=== PATIENT | male | born 1990 | race Caucasian/White ===

== ENCOUNTER → 2021-08-08 09:36 | Outpatient (CLI) | payer OTHER, SELFPAY ==
[2021-08-08 11:31] LABS: COVID19 -Nasal RAPID Negative (Negative)
== END ==
PROVIDERS: PCP Student in an Organized Health Care Education/Training Program; Visit Provider Family Medicine Sleep Medicine
DX: Z20.822 Contact with and (suspected) exposure to COVID-19 (principal)
CPT/HCPCS: 87635; C9803

== ENCOUNTER 2021-08-11 09:00 | Day surgery (SDC) | payer OTHER, SELFPAY ==
[2021-08-11 09:13] VITALS: BP 123/76; PULSE 81; RESP 16; TEMP 36.5; O2SAT 99; BMI 29.0
--- NOTE | 2021-08-11 09:51 | PM.HP.1 ---
History of Present Illness History of Present Illness Date Patient Seen: 08/11/21 Time Patient Seen: 09:51 Chief complaint: DX COLONOSCOPY W/POSS BX Narrative: I reviewed the note on June [address] Garcia no changes. Patient History Medical History Depression Eczema Family & Social History Social History: household members spouse Tobacco & Substance use: Smoking Status Never smoker alcohol intake frequency a few times a week Substance Use Type does not use Meds Home Medications and Allergies Allergies Allergy/AdvReac Type Severity Reaction Status Date / Time No Known Drug Allergies Allergy Verified 08/11/21 09:10 Review of Systems Review of Systems ROS: Yes All systems reviewed with the patient and are negative except as otherwise documented Exam Vital Signs (past 8 hours): - 08/11/21 09:13 Temperature 97.7 F Pulse Rate 81 Respiratory Rate 16 Blood Pressure 123/76 Pulse Oximetry 99 Oxygen Delivery Method Room Air Const General: cooperative and comfortable Orientation: alert HENMT Head: normocephalic Ears: external ears normal Nose: external nose normal Face and sinus: normal facial exam Mouth: oral mucosae normal Eyes General: appearance normal, both eyes and all related structures Neck Neck: normal visual inspection Chest Chest: normal inspection of the chest Resp Effort & Inspection: normal respiratory effort GI Inspection: normal to inspection Skin General: no rashes or lesions noted and No jaundice Neuro General: patient alert and moves all extremities Cognition: normal cognition Speech: speech normal Extrem General: no pedal edema Psych Appearance: grossly normal Assessment & Plan Assessment & Plan narrative: 30-year-old with chronic constipation. Colonoscopy is pursued to exclude obstructing pathology. Time Spent With Patient Critical Care time: I spent a total of [] minutes of critical care time on this patient's care today; this time is exclusive of procedural time.
--- NOTE | 2021-08-11 09:54 | PM.PREOP ---
Pre-operative Note COVID-19 COVID-19 status: Negative Result date/Date tested (Pos, Neg/Pending): 08/08/21 Criteria for continued procedure: Possibility delay results in more complex future surgery or treatment Interval Note History & Physical reviewed/Exam performed by Physician: Yes Changes to H&P: No ASA Class (for procedural sedation): I
--- NOTE | 2021-08-11 10:19 | PM.OP.COLON ---
Operative Date/Time/Diagnoses Date of procedure: 08/11/21 Time of procedure: 10:19 Pre-op diagnosis: Constipation Post-op diagnosis: same Procedure & Clinicians Study performed: Colonoscopy Same procedure as scheduled: Yes Indications: Constipation Surgeon: Jl Veras Procedure Notes SCOAP/Timeout: Done Procedure in detail: After the risks and benefits were explained, written and verbal informed consent was obtained. The patient was brought into the procedure room and placed into the left lateral decubitus position. Please see nurse bookstore manager notes for sedation details. Digital rectal examination was accomplished. The scope was introduced into the patient and advanced under direct visualization to the cecum as identified by the appendiceal orifice and ileocecal valve. The scope was slowly withdrawn to carefully examine the mucosa for any defects or lesions. Comprehensive imaging was accomplished throughout the rectum including the dentate line. The colon was decompressed, the scope was then removed from the patient who tolerated the procedure well. Bowel prep adequate Adult colonoscope Scope withdrawal time: 10 minutes Sedation minutes: 20 Specimen(s): none sent Complications: none Impression: Patient had a mildly tortuous left colon. No significant polyps mass lesions inflammatory features nor stenoses throughout. Endoscopic diagnosis Visually normal colonoscopy Post-procedure Plan for aftercare: 1. Continue with bowel regimen 2. Follow up with Dr. Garcia Disposition: PACU
[2021-08-11 10:20] VITALS: BP 99/64; PULSE 76; RESP 18; TEMP 35.9; O2SAT 98
[2021-08-11 10:25] VITALS: BP 118/63; PULSE 64; RESP 12; O2SAT 12
[2021-08-11 10:30] VITALS: BP 109/78; PULSE 83; RESP 14; TEMP 36.3; O2SAT 97
[2021-08-11 10:35] VITALS: BP 109/78; PULSE 77; RESP 10; O2SAT 97
[2021-08-11 10:38] VITALS: BP 112/86; PULSE 80; RESP 16; TEMP 36.4; O2SAT 97
== END 2021-08-11 10:51 | disposition home or self-care (01) ==
PROVIDERS: PCP Student in an Organized Health Care Education/Training Program; Referring Provider Internal Medicine Gastroenterology; Visit Provider Internal Medicine Gastroenterology
PROC: 0DJD8ZZ Inspection of Lower Intestinal Tract, Via Natural or Artificial Opening Endoscopic (ICD-10-PCS; CPT 45378; principal; 2021-08-11 10:00)
DX: K59.00 Constipation, unspecified (principal)
CPT/HCPCS: 45378; J2704